=== PATIENT | female | born 1955 | race African-American/Black ===

== ENCOUNTER 2017-07-23 07:08 | Outpatient (CLI) | payer OTHER ==
--- NOTE | 2017-07-23 10:17 | MRI ---
MRI OF THE LUMBAR SPINE WITHOUT CONTRAST: HISTORY: Radiculopathy, lumbar region. Fall. No surgery. Right leg and back pain for 5 months. COMPARISON: None. FINDINGS: Background marrow signal is normal. Conus medullaris terminates at inferior end plate of L1. Multiple T2 hyperintense foci interpolar right kidney of the renal sinus. Visualized portion of the aorta is nonaneurysmal. No intraperitoneal adenopathy. Paraspinal musculature is symmetric. Levels are as follows: T12-L1: Normal disk. No significant neural foraminal or spinal canal narrowing. L1-L2: Mild disk desiccation. Mild facet arthrosis. No significant neural foraminal or spinal can al narrowing. L2-L3: Mild circumferential disk bulge and height loss. Mild to moderate facet arthropathy. Spina l canal measures 1 cm. There is mild right and moderate left neural foraminal narrowing predominant ly due to the disk protrusion. L3-L4: Circumferential disk bulge with superimposed left lateral recess and subforaminal disk protr usion. There is also moderate facet arthrosis. The spinal canal measures 7 mm. There is moderate left and right neural foraminal narrowing. L4-L5: Circumferential disk space height loss with disk bulge. There is also left lateral recess a nd subforaminal disk protrusion as well as bilateral facet arthropathy causing moderate to severe le ft and moderate right-sided neural foraminal narrowing. The spinal canal at this level measures approximately 6 mm. L5-S1: Posterior disk protrusion, broad-based. There is also moderate facet arthrosis. This cause s moderate left and moderate to severe right-sided neural foraminal narrowing. The spinal canal at t his level measures approximately 5 mm. Mild degenerative disease between the L4-5 and L5-S1 spinous processes. IMPRESSION: Multilevel spondylosis as described above. No acute fracture. POS: OFF
== END 2017-07-23 07:09 | disposition home or self-care (01) ==
LOC: MRI 07:08
PROVIDERS: ATTEND Family Medicine
DX: M47.26 Other spondylosis with radiculopathy, lumbar region (principal); M47.27 Other spondylosis with radiculopathy, lumbosacral region
CPT/HCPCS: 72148

== ENCOUNTER 2021-03-29 10:03 | Outpatient (CLI) | payer MEDICARE, OTHER | END 2021-03-29 10:04 | disposition home or self-care (01) | LOC: BICRAD 10:03 | PROVIDERS: ATTEND Internal Medicine Critical Care Medicine | DX: R06.00 Dyspnea, unspecified (principal) | CPT/HCPCS: 71046 ==

== ENCOUNTER 2021-04-12 10:23 | Outpatient (CLI) | payer MEDICARE, OTHER | END 2021-04-12 10:24 | disposition home or self-care (01) | LOC: BICRAD 10:23 | PROVIDERS: ATTEND Internal Medicine Critical Care Medicine | DX: R06.00 Dyspnea, unspecified (principal) | CPT/HCPCS: 71046 ==